=== PATIENT | female | born 1935 | race Two or more races ===

== ENCOUNTER 2018-01-31 08:39 | Outpatient (CLI) | payer OTHER | END 2018-01-31 08:48 | disposition home or self-care (01) | LOC: RAD 501 08:39 | DX: I15.8 Other secondary hypertension (principal); I10 Essential (primary) hypertension ==

== ENCOUNTER 2018-03-30 11:36 | Emergency (ER) | payer OTHER ==
[~2018-03-30] VITALS: Ht 160 cm; Wt 59.9 kg
[2018-03-30] MEDS ORDERED: COUMADIN4 MG PO (12:40)
== END 2018-03-30 17:04 | disposition home or self-care (01) ==
LOC: ER 11:36
DX: S80.212A Abrasion, left knee, initial encounter (principal); R42 Dizziness and giddiness; R06.02 Shortness of breath; W01.198A Fall on same level from slipping, tripping and stumbling with subsequent striking against other object, initial encounter; Y93.89 Activity, other specified; Y92.480 Sidewalk as the place of occurrence of the external cause; Y99.8 Other external cause status

== ENCOUNTER 2018-06-22 09:02 | Outpatient (CLI) | payer OTHER ==
[~2018-06-22 09:02] MED LIST: COUMADIN4 MG PO
== END 2018-06-22 10:08 | disposition home or self-care (01) ==
LOC: MRI 09:02
DX: R42 Dizziness and giddiness (principal); H93.3X1 Disorders of right acoustic nerve; H93.3X2 Disorders of left acoustic nerve
CPT/HCPCS: 70543; 70553; A9575

== ENCOUNTER 2018-08-01 09:01 | Outpatient (CLI) | payer OTHER | END 2018-08-01 09:53 | disposition home or self-care (01) | LOC: TOM 09:01 | DX: K58.0 Irritable bowel syndrome with diarrhea (principal) ==

== ENCOUNTER → 2018-12-03 12:09 | Outpatient (CLI) | payer OTHER | END | disposition home or self-care (01) | LOC: LAB 12:09 | DX: I48.1 Persistent atrial fibrillation (principal); Z79.01 Long term (current) use of anticoagulants; R09.02 Hypoxemia; E07.81 Sick-euthyroid syndrome; R78.89 Finding of other specified substances, not normally found in blood; R74.8 Abnormal levels of other serum enzymes; R80.8 Other proteinuria; E78.2 Mixed hyperlipidemia ==

== ENCOUNTER 2018-12-03 13:00 | Outpatient (CLI) | payer OTHER | END 2018-12-03 15:18 | disposition home or self-care (01) | LOC: RAD 13:00 | DX: E72.89 Other specified disorders of amino-acid metabolism (principal); S29.9XXA Unspecified injury of thorax, initial encounter ==

== ENCOUNTER → 2019-06-28 | Outpatient (CLI) | payer OTHER | END | disposition home or self-care (01) | LOC: RAD 14:52 | DX: M79.604 Pain in right leg (principal); M54.5 Low back pain; M54.16 Radiculopathy, lumbar region ==

== ENCOUNTER 2020-06-08 01:35 | Outpatient (CLI) | payer OTHER | END 2020-06-08 15:00 | disposition home or self-care (01) | LOC: PPH VACUNA 01:35 | PROVIDERS: ATTEND Emergency Medicine Pediatric Emergency Medicine | DX: Z23 Encounter for immunization (principal) ==

== ENCOUNTER 2021-02-22 07:24 | Outpatient (CLI) | payer OTHER | END 2021-02-22 07:36 | disposition home or self-care (01) | LOC: TOM 07:24 | PROVIDERS: ATTEND Internal Medicine Gastroenterology | DX: K43.9 Ventral hernia without obstruction or gangrene (principal); K57.90 Diverticulosis of intestine, part unspecified, without perforation or abscess without bleeding; R10.84 Generalized abdominal pain ==

== ENCOUNTER 2022-01-06 07:18 | Outpatient (CLI) | payer OTHER | END 2022-01-06 14:58 | disposition home or self-care (01) | LOC: TOM 07:18 | PROVIDERS: ATTEND Internal Medicine Gastroenterology | DX: K43.9 Ventral hernia without obstruction or gangrene (principal) | CPT/HCPCS: 74178; Q9965 ==

== ENCOUNTER 2022-08-15 10:56 | Outpatient (CLI) | payer OTHER | END 2022-08-15 11:04 | disposition home or self-care (01) | LOC: RAD 10:56 | PROVIDERS: ATTEND Physical Medicine & Rehabilitation | DX: M25.512 Pain in left shoulder (principal) ==

== ENCOUNTER 2022-10-25 12:51 | Outpatient (CLI) | payer OTHER | END 2022-10-25 13:01 | disposition home or self-care (01) | LOC: MRI 12:51 | PROVIDERS: ATTEND Physical Medicine & Rehabilitation | DX: M25.512 Pain in left shoulder (principal) | CPT/HCPCS: 73218 ==